=== PATIENT | male | born 1960 | race Caucasian/White ===

== ENCOUNTER 2016-06-25 16:21 | Emergency (ER) | payer OTHER ==
[2016-06-25 17:05] LABS: CHLORIDE,CL 107 mmol/L (98-110); SODIUM,NA 141 mmol/L (136-146)
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
[2016-06-25 19:15] VITALS: BP 158/117
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
--- NOTE | 2016-06-27 10:34 | CR ---
EXAM DATE: 06/25/16 PATIENT'S AGE: 55 Patient: ALEX COUGHLIN Facility: [place], [place] Site . Site : 1960 Study: XRay Chest [id number]/8/2017 4:49:05 PM Ordering Physician: Doctor Esquivel Final Report: CHEST 1 VIEW AP INDICATION: Endotracheal tube repositioning. COMPARISON: Previous portable chest same date IMPRESSION: The endotracheal tube is repositioned and is now 2.5 cm above the figueroa. Re- expansion of the left lung. No pneumothorax. NG tube is now in placed and is coiled at the level of the stomach. No pneumothorax. Dictated by Albert Gramajo MD @ Jun 25 2016 4:57PM (Electronic Signature) Report Signed by Proxy and Original Signed Document filed in the Medical Record. MTDD
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
== END 2016-06-25 19:21 ==
LOC: MW.ED 16:21
DX: T20.37XA Burn of third degree of neck, initial encounter (principal); T22.312A Burn of third degree of left forearm, initial encounter; T22.311A Burn of third degree of right forearm, initial encounter; T31.44 Burns involving 40-49% of body surface with 40-49% third degree burns; X02.0XXA Exposure to flames in controlled fire in building or structure, initial encounter
CPT/HCPCS: 36415; 43753; 71010; 72020; 72170; 80053; 80305; 81001; 85025; 85610; 85730; 99285; G0390; G0480; 36410; 99291